=== PATIENT | male | born 1955 | race Caucasian/White ===

== ENCOUNTER 2021-07-30 12:40 | Inpatient (IN) ==
--- NOTE | 2021-07-30 13:11 | Emergency Department Note ---
History of Present Illness General Chief complaint: Cardiac Assessment Stated complaint: ''GOING TO [employer]'' CARDIAC ASSESMENT Source: patient History of Present Illness Provider complaint: Chest pain Onset (ago): month(s) Location: chest Radiation: neck (And jaw) Pain Consistency: + intermittent Quality: + burning Relieved By: + rest Exacerbated By: + other (Exertion) Associated symptoms: + diaphoresis and + shortness of breath; no cough, no fever/chills or no nausea/vomiting This is a 66-year-old male sent over from his living advisor office for admission for cardiac catheterization. The patient has been having chest pain for the past month intermittently. His try to get him to come to the emergency department but he refused each time. He describes it as a burning sensation in the middle of his chest rating into his neck and jaw. It is accompanied with diaphoresis and shortness of breath. It is worse with exertion and better with rest. He was seen by cardiology today and it was recommended that he come here for hospitalization and cardiac catheterization by Dr. Lopez. He denies any symptoms at this time. He denies any fever, recent illness, cough or cold symptoms, abdominal pain, vomiting, diarrhea, urinary symptoms or leg swelling or pain. Home Medications Medication Instructions Recorded Confirmed Type aspirin 325 mg tablet 325 mg PO DAILY 12/23/19 05/04/21 History cyclobenzaprine 10 mg tablet 10 mg PO UD tab 12/23/19 05/04/21 History fluticasone 250 mcg-salmeterol 50 1 puffs INH BID 12/23/19 05/04/21 History mcg/dose blistr powdr for inhalation fluticasone propionate 50 1 sprays INTNAS BID 12/23/19 05/04/21 History mcg/actuation nasal spray,suspension ketoconazole 2 % topical cream 1 appln TOP UD gm 12/23/19 05/04/21 History lisinopril 10 mg tablet 10 mg PO DAILY 12/23/19 05/04/21 History mupirocin calcium 2 % topical cream 1 appln TOP UD gm 12/23/19 05/04/21 History omega-3 fatty acids 1,000 mg 1,000 mg PO DAILY 12/23/19 05/04/21 History capsule (Fish Oil Concentrate) omeprazole 40 mg capsule,delayed 40 mg PO DAILY 12/23/19 05/04/21 History release rosuvastatin 20 mg sprinkle capsule 20 mg PO DAILY 12/23/19 05/04/21 History albuterol sulfate 90 mcg/actuation 1 inh INHALATION QID PRN 05/04/21 05/04/21 History aerosol inhaler sodium,potassium,mag sulfates 17.5 See Rx Instructions PO .COMPLEX 07/29/21 Rx gram-3.13 gram-1.6 gram oral soln #354 ml (Suprep Bowel Prep Kit) Allergies Allergy/AdvReac Type Severity Reaction Status Date / Time narcotic analgesics AdvReac Unknown Vomiting Uncoded 05/04/21 15:28 Past Med/Surg History Medical History (Updated 07/30/21 @ 18:51 by Justen Fernandez MD) Asthma Carpal tunnel syndrome COPD (chronic obstructive pulmonary disease) Current smoker CVA (cerebral vascular accident) Dyslipidemia GERD (gastroesophageal reflux disease) HTN (hypertension) HOA (obstructive sleep apnea) Prostate cancer Surgical History History of carpal tunnel surgery S/P prostatectomy Family History Family/Other Unknown family medical history Other Malignant melanoma Social History Smoking Status: Current every day smoker Cigarettes Per Day: 20; Hx Alcohol Use: Yes Alcohol type: beer Hx Substance Use: No Preferred Language: Serbian Communication Ability: Effective Sample Maker Original Required: No Beliefs That Will Affect Care: None marital status: Current Living Situation: Spouse current occupational status: retired Other Information That Helps Us Care for You: No Feels Safe at Home: Yes Safety Concerns: Feels Safe At This Time Assistive Devices: Glasses Review of Systems See HPI for pertinent positives & negatives. and A total of 10 systems reviewed and were otherwise negative Physical Exam Vital Signs Vital Signs - 24 hr 07/30/21 13:02 07/30/21 15:00 07/30/21 15:15 Temperature 37.2 C Temperature Source Oral Pulse Rate 102 H Pulse Rate [Apical] 103 H 84 85 Pulse Rhythm [Apical] Regular Regular Pulse Strength [Apical] Normal Normal Respiratory Rate 20 18 22 Respiratory Effort / Characteristics Non-Labored Spontaneous Non-Labored Non-Labored Respiratory Depth Normal Normal Normal Respiratory Pattern Regular Regular Regular Blood Pressure 167/102 H Blood Pressure [Right Arm] 167/102 H 118/66 116/69 Blood Pressure Mean 123 Blood Pressure Mean [Right Arm] 123 83 84 Blood Pressure Position [Right Arm] Sitting Sitting Pulse Oximetry 99 98 98 Oxygen Delivery Method Room Air Room Air Room Air Sepsis Recent Fever Within 48 Hours No Sepsis New/Unexplained Change in Mental Status No Sepsis Action Taken by Nursing No Action Required Constitutional: Vital signs reviewed. Eyes: Pupils are equal round reactive to light. Conjunctiva are noninjected. ENT: Pharynx is clear without erythema or exudate. Mucous membranes are moist. Neck supple without meningeal signs. Respiratory: Clear to auscultation bilaterally. Breath sounds are equal bilaterally. Cardiovascular: Regular rate and rhythm. No rubs or gallops. GI: Soft, nondistended and nontender. Bowel sounds are present. Musculoskeletal: No peripheral edema. No lower extremity tenderness. Integumentary: No cyanosis. or jaundice. Neurological: The patient is awake and alert. No focal deficits. Psychiatric: Normal affect. Not anxious appearing. Course Administered Medications Sodium Chloride (Nss 1000ml) 1,000 mls @ 100 mls/hr IV .Q10H [facility] Stop: 07/30/21 22:29 Last Admin: 07/30/21 16:34 Dose: 100 mls/hr Documented by: [id number] Heparin Sodium/Dextrose (Heparin Sodium/Dextrose) 25,000 units in 500 mls @ 30 mls/hr IV .[id number] [facility]; Protocol Stop: 08/29/21 15:44 Last Admin: 07/30/21 16:38 Dose: 1,500 units/hr, 30 mls/hr Documented by: [id number] Cosigned by: [id number] Nitroglycerin (Nitroglycerin 2% Ointment 30gm Tube) 1 inch EXT Q6H [facility] Stop: 08/29/21 15:29 Last Admin: 07/30/21 16:37 Dose: 1 inch Documented by: [id number] Discontinued Medications Fentanyl Citrate (Fentanyl Citrate 100 Mcg/2 Ml Vial) Confirm Administered Dose 100 mcg .ROUTE .STK-MED ONE Stop: 07/30/21 13:30 Last Admin: 07/30/21 14:35 Dose: 100 mcg Documented by: [id number] Fentanyl Citrate (Fentanyl Citrate 100 Mcg/2 Ml Vial) Confirm Administered Dose 100 mcg .ROUTE .STK-MED ONE Stop: 07/30/21 13:54 Last Increment: 07/30/21 14:36 Dose: 25 mcg Documented by: [id number] Heparin Sodium (Porcine) (Heparin (Porcine) 1000 Unit/Ml 10 Ml ([employer] Use Only)) Confirm Administered Dose 10,000 units .ROUTE .STK-MED ONE Stop: 07/30/21 13:30 Last Admin: 07/30/21 14:36 Dose: 5,000 units Documented by: [id number] Heparin Sodium/Dextrose (Heparin 69194 Unit/500 Ml D5w) Confirm Administered Dose 25,000 units IV .STK-MED ONE Stop: 07/30/21 14:42 Last Admin: 07/30/21 15:00 Dose: 1,500 units Documented by: [id number] Cosigned by: [id number] Heparin Sodium/Dextrose (Heparin Iv Adult Wt-Based Standard *No* Bolus Protocol) 1 ea IV Q15M [facility]; Protocol Stop: 07/30/21 23:59 Last Admin: 07/30/21 16:40 Dose: Not Given Documented by: [id number] Admin: 07/30/21 16:40 Dose: Not Given Documented by: [id number] Admin: 07/30/21 16:40 Dose: Not Given Documented by: [id number] Admin: 07/30/21 16:39 Dose: Not Given Documented by: [id number] Admin: 07/30/21 16:39 Dose: Not Given Documented by: [id number] Admin: 07/30/21 16:39 Dose: Not Given Documented by: [id number] Midazolam HCl (Midazolam Hcl 1 Mg/Ml 2ml Vial) Confirm Administered Dose 2 mg .ROUTE .STK-MED ONE Stop: 07/30/21 13:30 Last Admin: 07/30/21 14:36 Dose: 2 mg Documented by: [id number] Midazolam HCl (Midazolam Hcl 1 Mg/Ml 2ml Vial) Confirm Administered Dose 2 mg .ROUTE .STK-MED ONE Stop: 07/30/21 13:54 Last Increment: 07/30/21 14:37 Dose: 1 mg Documented by: [id number] Nicardipine HCl (Nicardipine Hcl Inj 2.5 Mg/Ml 10 Ml Amp) Confirm Administered Dose 25 mg .ROUTE .STK-MED ONE Stop: 07/30/21 13:30 Last Admin: 07/30/21 14:36 Dose: 25 mg Documented by: [id number] Nitroglycerin/Dextrose (Nitroglycerin/D5w 100mcg/Ml 20ml Syr) Confirm Administered Dose 2,000 mcg .ROUTE .STK-MED ONE Stop: 07/30/21 13:30 Last Admin: 07/30/21 14:36 Dose: 2,000 mcg Documented by: [id number] Medical Decision Making Differential Diagnosis DE, unstable angina, aortic dissection, pleurisy, GERD Medical Records Attestation: I reviewed the patient's medical records. I did perform a limited focused review of portions of the patient's old chart on the electronic medical record. The patient has had no recent pertinent visits to this hospital. Home Medications Current Medication List: was personally reviewed by me Laboratory Data Attestation: I reviewed the patient's lab results. Result diagrams: 07/30/21 13:00 07/30/21 13:00 Lab Results 07/30/21 07/30/21 07/30/21 Range/Units 13:00 13:00 13:00 WBC 12.83 H (4.8-10.8) K/uL RBC 5.54 (4.7-6.1) M/uL Hgb 17.0 (14.0-18.0) g/dL Hct 48.7 (42-52) % MCV 87.9 (80-100) fL MCH 30.7 (25-34) pg MCHC 34.9 (32-36) g/dL RDW Std Deviation 43.4 (36.4-46.3) fL RDW Coeff of Fifi 13.3 (11.5-14.5) % Plt Count 233 (130-400) K/uL MPV 10.4 (7.4-10.4) fL Immature Gran % (Auto) 0.2 % Neut % (Auto) 69.5 % Lymph % (Auto) 15.7 % [place] % (Auto) 10.4 % Eos % (Auto) 4.0 % Baso % (Auto) 0.2 % Neut # (Auto) 8.90 H (1.4-6.5) K/uL Lymph # (Auto) 2.02 (1.2-3.4) K/uL [place] # (Auto) 1.34 H (0.11-0.59) K/uL Eos # (Auto) 0.51 H (0-0.5) K/uL Baso # (Auto) 0.03 (0-0.2) K/uL Immature Gran # (Auto) 0.03 H (0.00-0.02) K/uL APTT 26.2 (21.0-31.0) Seconds PTT Ratio 1.0 Sodium 136 (136-145) mmol/L Potassium 4.3 (3.5-5.1) mmol/L Chloride 106 (98-107) mmol/L Carbon Dioxide 25 (21-32) mmol/L Anion Gap 5.0 (3-11) BUN 26 H (7-18) mg/dl Creatinine 1.09 (0.6-1.4) mg/dl Est Cr Clr Drug Dosing 77.6 ml/min Est GFR ( Amer) 81.5 ml/min Est GFR (Non-Af Amer) 70.4 ml/min BUN/Creatinine Ratio 23.8 H (10-20) Glucose 94 (70-99) mg/dl Calcium 9.3 (8.5-10.1) mg/dl Total Bilirubin 0.4 (0.2-1) mg/dl AST 49 H (15-37) U/L ALT 39 (12-78) U/L Alkaline Phosphatase 86 (45-117) U/L Troponin I 4.040 H* (0-0.045) ng/ml Total Protein 7.7 (6.4-8.2) gm/dl Albumin 3.8 (3.4-5.0) gm/dl Globulin 3.9 (2.5-4.0) gm/dl Albumin/Globulin Ratio 1.0 (0.9-2) Lipase 126 (73-393) U/L COVID-19 Eval Order SARS-CoV-2, RNA, NAAT (NEGATIVE) 07/30/21 07/30/21 Range/Units 13:00 13:00 WBC (4.8-10.8) K/uL RBC (4.7-6.1) M/uL Hgb (14.0-18.0) g/dL Hct (42-52) % MCV (80-100) fL MCH (25-34) pg MCHC (32-36) g/dL RDW Std Deviation (36.4-46.3) fL RDW Coeff of Fifi (11.5-14.5) % Plt Count (130-400) K/uL MPV (7.4-10.4) fL Immature Gran % (Auto) % Neut % (Auto) % Lymph % (Auto) % [place] % (Auto) % Eos % (Auto) % Baso % (Auto) % Neut # (Auto) (1.4-6.5) K/uL Lymph # (Auto) (1.2-3.4) K/uL [place] # (Auto) (0.11-0.59) K/uL Eos # (Auto) (0-0.5) K/uL Baso # (Auto) (0-0.2) K/uL Immature Gran # (Auto) (0.00-0.02) K/uL APTT (21.0-31.0) Seconds PTT Ratio Sodium (136-145) mmol/L Potassium (3.5-5.1) mmol/L Chloride (98-107) mmol/L Carbon Dioxide (21-32) mmol/L Anion Gap (3-11) BUN (7-18) mg/dl Creatinine (0.6-1.4) mg/dl Est Cr Clr Drug Dosing ml/min Est GFR ( Amer) ml/min Est GFR (Non-Af Amer) ml/min BUN/Creatinine Ratio (10-20) Glucose (70-99) mg/dl Calcium (8.5-10.1) mg/dl Total Bilirubin (0.2-1) mg/dl AST (15-37) U/L ALT (12-78) U/L Alkaline Phosphatase (45-117) U/L Troponin I (0-0.045) ng/ml Total Protein (6.4-8.2) gm/dl Albumin (3.4-5.0) gm/dl Globulin (2.5-4.0) gm/dl Albumin/Globulin Ratio (0.9-2) Lipase (73-393) U/L COVID[facility], RNA, NAAT NEGATIVE (NEGATIVE) Imaging Data Radiologist's Impression: Chest X-Ray 07/30/21 12:54 XR chest 1V portable HISTORY: 66 years-old Male Chest Pain acute atypical chest pain COMPARISON: CT chest 12/16/2020 TECHNIQUE: Portable AP view of the chest FINDINGS: Cardiac silhouette is normal in size. Emphysema with mild chronic interstitial coarsening. No pneumothorax, pleural effusion or overt pulmonary edema. Mild bibasilar densities suggestive of atelectasis. Degenerative changes of the shoulders and spine. IMPRESSION: Emphysema without acute process. ACT 112: Negative or not required by law. The above report was generated using voice recognition software. It may contain grammatical, syntax or spelling errors. Electronically signed by: Bryan Baldwin M.D. 07/30/2021 1:22 PM ECG Data Attestation: I personally reviewed and interpreted this ECG as follows: Indication: + chest pain Rate (beats per minute): 97 Rhythm: + normal sinus ECG [place]: + Normal ECG ST segments: + T-wave inversions and + Nonspecific ST abnormalities ECG Findings: no PVCs MDM Narrative I did evaluate the patient as noted above. He is presenting with a month of exertional chest pain. He was seen by cardiology and sent here for admission and cardiac catheterization. IV access was established. I did place an order for continuous cardiac monitoring. The monitor showed normal sinus rhythm at a rate of 98 bpm. I did order and personally review the patient's 12-lead EKG as described above. He has some T wave inversions and nonspecific ST changes. No evidence of STEMI. I did order and personally reviewed the images of the patient's chest x-ray as described above. He has emphysematous changes without acute process. I did order a urine analysis. I did order and review the patient's blood work as noted in the electronic medical record. CBC demonstrates a white count of 12.8. He is not anemic. Electrolytes are unremarkable. Troponin is elevated at 4.04. I did discuss case with the hospitalist and clinical case manager. The patient was seen by cardiology in the emergency department and taken directly to the cardiac catheterization lab. Impression & Plan Non-ST elevation DE (NSTEMI) Discharge Plan Visit Data Chief Complaint: Cardiac Assessment Stated Complaint: ''GOING TO [employer]'' CARDIAC ASSESMENT ED Provider: Justen Fernandez Discharge Problem: Non-ST elevation DE (NSTEMI) Patient Disposition: Admitted As Inpatient Discharge Instructions Interventions: ED Discharge Assessment Last Done: 07/30/21 13:20
[2021-07-30 13:16] LABS: Basophils # (auto) 0.03 K/uL (0-0.2); Basophils % (auto) 0.2 %; Eosinophils # (auto) 0.51 K/uL (0-0.5); Hematocrit (blood only) 48.7 % (42-52); Immature Granulocytes # (auto) 0.03 K/uL (0.00-0.02); Immature Granulocytes % (auto) 0.2 %; Lymphocytes # (auto) 2.02 K/uL (1.2-3.4); Lymphocytes % (auto) 15.7 %; Mean Corpuscular Hemoglobin 30.7 pg (25-34); Mean Corpuscular Hgb Conc 34.9 g/dL (32-36); Mean Corpuscular Volume 87.9 fL (80-100); Mean Platelet Volume 10.4 fL (7.4-10.4); Monocytes # (auto) 1.34 K/uL (0.11-0.59); Monocytes % (auto) 10.4 %; Neutrophils % (auto) 69.5 %; Platelet Count 233 K/uL (130-400); RDW Coefficient of Variation 13.3 % (11.5-14.5); RDW Standard Deviation 43.4 fL (36.4-46.3); Red Blood Count 5.54 M/uL (4.7-6.1); White Blood Count 12.83 K/uL (4.8-10.8)
[2021-07-30 13:21] LABS: Partial Thromboplastin Time 26.2 Seconds (21.0-31.0)
--- NOTE | 2021-07-30 13:23 | XRay Report ---
XR chest 1V portable HISTORY: 66 years-old Male Chest Pain acute atypical chest pain COMPARISON: CT chest 12/16/2020 TECHNIQUE: Portable AP view of the chest FINDINGS: Cardiac silhouette is normal in size. Emphysema with mild chronic interstitial coarsening. No pneumot horax, pleural effusion or overt pulmonary edema. Mild bibasilar densities suggestive of atelectasis. Degenerative changes of the shoulders and spine. IMPRESSION: Emphysema without acute process. ACT 112: Negative or not required by law. The above report was generated using voice recognition software. It may contain grammatical, syntax o r spelling errors. Electronically signed by: Bryan Baldwin M.D. 07/30/2021 1:22 PM
[2021-07-30] MEDS ORDERED: niCARdipine HCL INJ 2.5 MG/ML 10 ML AMP ONE (13:29)
[2021-07-30] MEDS ORDERED: HEPARIN (PORCINE) 1000 UNIT/ML 10 ML (CATH LAB USE ONLY) ONE (13:29)
[2021-07-30] MEDS ORDERED: fentaNYL citrate 100 MCG/2 ML VIAL ONE ×2 (13:29→13:53)
[2021-07-30] MEDS ORDERED: MIDAZOLAM HCL 1 MG/ML 2ML VIAL ONE ×2 (13:29→13:53)
[2021-07-30] MEDS ORDERED: NITROGLYCERIN/D5W 100MCG/ML 20ML SYR ONE (13:29)
--- NOTE | 2021-07-30 13:29 | Pre Anesthesia Assessment ---
Date of Service July 30, 2021 Pre Sedation Assessment Vital Signs Temp Pulse Pulse Resp BP BP Pulse Ox 07/30/21 13:02 99.0 F 102 H 103 H 20 167/102 H 167/102 H 99 Cardiovascular RRR, no murmur, no edema Respiratory normal respiratory effort, lungs clear to auscultation Pre-Sedation Airway Assessment Smoking Status: Current every day smoker Hx Sleep Apnea: No Hx Difficult Intubation: No Short, Thick Neck: No Thyromental Distance: < 3.5 Finger Breadths Mallampati Class: III ASA: ASA3 Procedure Planning Contraindications for Sedation: none Current Medications Reviewed: Yes Notes The planned sedation has been discussed with the patient. Informed Consent was obtained. I have identified the patient, determined the appropriateness of sedation and have assessed the patient immediately prior to the procedure. All medicine(s) and interventions are by my order.
[2021-07-30 13:30] LABS: Albumin Level 3.8 gm/dl (3.4-5.0); BUN Creatinine Ratio 23.8 (10-20); Calcium 9.3 mg/dl (8.5-10.1); Creatinine Clr Calc Pharmacy 77.6 ml/min; Est GFR (African American) 81.5 ml/min; Est GFR (Non-African American) 70.4 ml/min; Potassium 4.3 mmol/L (3.5-5.1)
--- NOTE | 2021-07-30 13:35 | Cardiology Consultation ---
Date of Consultation July 30, 2021 Assessment & Plan (1) Unstable angina: Presentation concerning for unstable angina and recommend proceeding with urgent cardiac catheterization and possible PCI. No apparent contraindications to procedure. Discussed risks, benefits, alternatives of procedure with patient and they are willing to proceed. Further recommendations pending findings of coronary angiography. History of Present Illness History of Present Illness Mr. Aguillon is a 66 yo man with COPD, heavy tobacco use, HOA, prior TIA here with accelerating/unstable angina. Symptoms for 1 month. Substernal burning chest pain, diaphoresis with exertion. Progressed to point where having them symptoms minimal activity like talking. Chest pain free currently. Initial ECG unremarkable. Allergies Allergy/AdvReac Type Severity Reaction Status Date / Time narcotic analgesics AdvReac Unknown Vomiting Uncoded 05/04/21 15:28 Home Medications Medication Instructions Recorded Confirmed Type aspirin 325 mg tablet 325 mg PO DAILY 12/23/19 05/04/21 History cyclobenzaprine 10 mg tablet 10 mg PO UD tab 12/23/19 05/04/21 History fluticasone 250 mcg-salmeterol 50 1 puffs INH BID 12/23/19 05/04/21 History mcg/dose blistr powdr for inhalation fluticasone propionate 50 1 sprays INTNAS BID 12/23/19 05/04/21 History mcg/actuation nasal spray,suspension ketoconazole 2 % topical cream 1 appln TOP UD gm 12/23/19 05/04/21 History lisinopril 10 mg tablet 10 mg PO DAILY 12/23/19 05/04/21 History mupirocin calcium 2 % topical cream 1 appln TOP UD gm 12/23/19 05/04/21 History omega-3 fatty acids 1,000 mg 1,000 mg PO DAILY 12/23/19 05/04/21 History capsule (Fish Oil Concentrate) omeprazole 40 mg capsule,delayed 40 mg PO DAILY 12/23/19 05/04/21 History release rosuvastatin 20 mg sprinkle capsule 20 mg PO DAILY 12/23/19 05/04/21 History albuterol sulfate 90 mcg/actuation 1 inh INHALATION QID PRN 05/04/21 05/04/21 History aerosol inhaler sodium,potassium,mag sulfates 17.5 See Rx Instructions PO .COMPLEX 07/29/21 Rx gram-3.13 gram-1.6 gram oral soln #354 ml (Suprep Bowel Prep Kit) Patient History Medical History (Updated 07/30/21 @ 13:33 by Pillo Lopez MD) Asthma Carpal tunnel syndrome COPD (chronic obstructive pulmonary disease) Current smoker CVA (cerebral vascular accident) Dyslipidemia GERD (gastroesophageal reflux disease) HTN (hypertension) HOA (obstructive sleep apnea) Prostate cancer Surgical History History of carpal tunnel surgery S/P prostatectomy Family History Family/Other Unknown family medical history Other Malignant melanoma Social History Smoking Status: Current every day smoker Cigarettes Per Day: 20; Hx Alcohol Use: Yes Hx Substance Use: Yes marital status: Current Living Situation: Spouse current occupational status: retired Feels Safe at Home: Yes Review of Systems Review of Systems: All systems reviewed & are unremarkable except as noted in HPI & below Physical Exam Physical Exam: General: Comfortable HEENT: Sclerae anicteric, Mask in place Lungs: Clear to auscultation bilaterally, Cardiac: Regular rate and rhythm, no murmurs. Vascular: 2+ radial, DP pulses. Abdomen: Soft, nontender Extremities: Well perfused, no peripheral edema Neuro: Nonfocal Psych: Alert orient x3, normal affect and mood Results & Data ([facility]) Vital Signs (Past 12 Hours) Vital Signs Temp Pulse Pulse Resp BP BP Pulse Ox 07/30/21 13:02 99.0 F 102 H 103 H 20 167/102 H 167/102 H 99 PG Care Time/CCT Total # of Minutes Spent Total Time Spent with Patient: Total time spent is greater than 50% in coordination of care (as documented) at patient's floor/unit and/or counseling patient: Coding Level of Care Code 21086 Initial Inpt Care Lvl 3 Diagnoses Unstable angina I20.0
[2021-07-30 13:41] LABS: Bilirubin,Total 0.4 mg/dl (0.2-1); Globulin 3.9 gm/dl (2.5-4.0); Total Protein 7.7 gm/dl (6.4-8.2); Troponin I 4.04 ng/ml (0-0.045)
--- NOTE | 2021-07-30 14:40 | Post Anesthesia Assessment ---
Date of Service July 30, 2021 Post Sedation Assessment Vital Signs Temp Pulse Pulse Resp BP BP Pulse Ox 07/30/21 13:02 99.0 F 102 H 103 H 20 167/102 H 167/102 H 99 Recovery Score Activity: Moves 4 extremities Respiration: Deep Breath/Cough Circulation: +/-20% PreAnes Value Consciousness: Fully Awake Oxygen Saturation: O2 needed for >90% Discharge Sedation Level of Care: Fast Track Phase II Post Sedation Plan On clinical assessment, the patient appears to have tolerated the sedation without complications. Patient is recovering as anticipated. Patient will continue to be monitored by nursing and may be discharged when sedation discharge criteria are met per below protocol. Upon Completions of procedure up to 15 minutes continue every 5 minute vital signs and the P.A.R. score; then discharge to a Phase I or Fast Track to Phase II per the following guidelines: * Discharge Patient to appropriate Phase II area if PAR is 8 or greater or return to pre- procedure baseline. The post - procedure orders will be as directed. * If PAR score is less than 8 or not return to pre-procedure baseline then patient will follow Phase I monitoring till PAR is reached for Phase II. The Phase I may be done in procedure room or may call to secure a Phase I area. * If naloxone or flumazenil are used for reversal, hold in Phase I for continued monitoring from when last reversal dose was given for a minimum of 60 minutes or longer pending the nurse and/or physician discretion of patient condition before discharge to Phase II. Please call the Sedation Physician to re-evaluate and complete post-note for discharge to Phase II area. Do NOT discharge from procedure sedation or Phase 1 until post- sedation evaluation note is complete by procedure /sedation MD Sedation Discharge Instructions to be given to the patient at discharge to home.
[2021-07-30] MEDS ORDERED: HEPARIN 25000 UNIT/500 ML D5W IV ONE (14:41)
--- NOTE | 2021-07-30 14:41 | Cardiac Catheterization ---
[facility] Data: Embedded Systems Software Engineer Cardiac Status Clinical evaluation leading to the procedure CAD Presenation: Non STEMI Anginal Classification: CCS IV Heart Failure: No Cardiogenic Shock within 24 Hours: No Cardiac Arrest within 24 Hours: No Imaging Studies Past 6 Months: No Stress Studies Past 6 Months: No Diagnostic Physicians Name: Enrique Lopez MD Status: Urgent Closure Device Percutaneous Entry Location: Radial Closure Device: Radial Band Recommendations: CABG Intraprocedure Events Significant Disection: No Perforation: No Cardiac Cath Procedure Full Procedure Date July 30, 2021 Pre-Procedure Diagnosis Pre-Procedure Diagnosis: Non STEMI AUC Score AUC Score: 8 Post-Procedure Diagnosis Post-Procedure Diagnosis: Severe CAD and Normal Intracardiac Pressures Procedure(s) Performed Procedure(s) Performed: Coronary Angiography and Left Heart Cath Steel Sash Erector Enrique Lopez MD Print Developer(s) Batch Analyst Estimated Blood Loss Estimated Blood Loss: 10 Medication(s) Medication(s): Fentanyl, Heparin, Lidocaine 1%, Nicardipine, Nitroglycerin and Versed Summary of Findings Indication: Acute coronary syndrome Access: 6 Fr right, left radial artery. Had to switch to left radial artery due to right subclavian artery tortuosity. Catheters: [place], diagnostic JL 3.5 Findings: LM -medium caliber, 40% ostial stenosis LAD -medium caliber, 70% proximal stenosis, 100% mid occlusion after D1. Mid to distal LAD fills via left to left collaterals. Medium D1 without significant disease Circumflex -small, diffuse proximal disease, 100% mid occlusion. Small OM 3/left PLB fills via left to left collaterals. RCA -dominant, large caliber, mild diffuse mid disease before 98% acute latemid stenosis. VINNIE-3 flow in right PDA, large right PLB LVEDP -9 Arterial Closure: TR bands Summary: 1. Severe multivessel coronary artery disease -98% acute mid RCA stenosis 40% ostial left main 70% proximal LAD prior to medium D1 100% mid LAD occlusion, distal vessel fills via left to left collaterals 100% small mid circumflex, distal vessel fills via left to left collaterals. 2. Normal intracardiac filling pressure Recommendations: Chest pain-free with VINNIE-3 flow in RCA. No need for emergent intervention. Recommend transfer to tertiary center for CABG evaluation. Discussed with Dr. Martinez of [facility] cardiac surgery. While awaiting transfer continue heparin infusion, nitro, aspirin, beta-xochitl. Hemodynamics Rest Ao:: 100/70/84 Final Ao: 101/69/83 LV: 113/9 Recommendations Recommendations: CABG Specimens Specimens: None Radiation Exposure (mGy) 1757 Contrast (mls) 55 Fluids (cc crystalloids) Fluids (cc crystalloids): 97 Drains Drains: None Anesthesia Moderate 0366-5732 Procedural Complication(s) None Disposition PCU I attest to the content of the Intraoperative Record and any orders documented therein. Any exceptions are noted below. [facility] Card Cath Procedure Codes Cardiac Catheterization Procedure 1: Cardiovascular Cath Procedures: 73417 Coronaries and LHC (+/-LV) Moderate Sedation Procedure 1: Sedation/Anesthesia: 60873 Mod Sedation by the same physician;Init15 Min Child Age 5 & Up Procedure 2: Sedation/Anesthesia: 10432 Mod Sedation by the same physician; Ea [id number] Minutes PG Care Time/CCT Total # of Minutes Spent Total Time Spent with Patient: Total time spent is greater than 50% in coordination of care (as documented) at patient's floor/unit and/or counseling patient:
[2021-07-30] MEDS ORDERED: ACETAMINOPHEN 325 MG TAB PO PRN (15:00)
[2021-07-30] MEDS ORDERED: SODIUM CHLORIDE 0.9% 1000ML 1,000 ML IV SCH (15:00)
[2021-07-30] MEDS ORDERED: MoRPHine SULFATE 10 MG/ML CARP/VIAL IV PRN (15:00)
[2021-07-30] MEDS ORDERED: ONDANSETRON INJ 2 MG/ML 2 ML VIAL IV PRN (15:00)
[2021-07-30] MEDS ORDERED: HEPARIN SODIUM/DEXTROSE 25,000 UNITS/500 ML BAG IV SCH (15:45)
[2021-07-30] MEDS: NITROGLYCERIN 2% OINTMENT 30GM TUBE EXT SCH ×2 (16:37→21:07)
[2021-07-30] MEDS: Heparin IV Adult Wt-Based Standard *NO* Bolus Protocol IV SCH ×2 (16:39→16:40)
--- NOTE | 2021-07-30 17:36 | History & Physical Report ---
Date of Service July 30, 2021 Assessment & Plan (1) Unstable angina: Plan: presented with one month of chest pain, burning left heart cath today with 99% stenosis in RCA with 100% occlusion circumflex and 100% occlusion LAD, the two latter sites are chronic with large collateral flow culprit vessel is RCA Dr. Lopez called [facility], they will accept him, no bed at this time continue heparin drip, nitro paste, aspirin, Metoprolol BID, Crestor 40mg on NSS after left heart cath labs in the morning (2) Coronary artery disease: Plan: severe 3 vessel disease that needs CABG LAD and circumflex are chronic with collateral flow RCA with 99% stenosis, VINNIE 3 flow if he would decompensate call Dr. Lopez, he can stent the RCA awaiting bed at [facility] Admission and Anticipated Discharge Date Admission Date: July 30, 2021 History of Present Illness Chief Complaint: I've had chest pain, on and off Primary Care Provider: Antonieta Patel MD 66 yo male with recent h/o chest burning sensation, radiates up into his neck and then he has a headache. He says he gets the symptoms on exertion. He says that the symptoms will last about 10 minutes, start to go away as he is resting. He does not feel short of breath or diaphoretic. He was getting concerned as the symptoms were more frequent, could not exert himself much, even walking up a flight of steps would trigger the chest burning. Did not have these symptoms prior to a month ago, if he did they were sporadic and not as intense. He was admitted for unstable angina, Dr. Lopez took him to the laboratory monitor straight from the ED. He was found to have severe triple vessel disease, chronic 100% occlusions in LAD and circumflex with good collateral flow but a new 99% stenosis in RCA. VINNIE flow was 3, no stent was placed. Dr. Lopez called [facility] and the cardiothoracic surgeon accepted him. No beds immediately so he was admitted to PCU. Plan for heparin drip, nitro paste, metoprolol, Crestor, aspirin. I discussed the case and the plan with Dr. Lopez. If the patient would decompensate over night then he would stent the RCA as that is likely the culprit vessel. Allergies Allergy/AdvReac Type Severity Reaction Status Date / Time narcotic analgesics AdvReac Unknown Vomiting Uncoded 05/04/21 15:28 Home Medications Medication Instructions Recorded Confirmed Type aspirin 325 mg tablet 325 mg PO DAILY 12/23/19 05/04/21 History cyclobenzaprine 10 mg tablet 10 mg PO UD tab 12/23/19 05/04/21 History fluticasone 250 mcg-salmeterol 50 1 puffs INH BID 12/23/19 05/04/21 History mcg/dose blistr powdr for inhalation fluticasone propionate 50 1 sprays INTNAS BID 12/23/19 05/04/21 History mcg/actuation nasal spray,suspension ketoconazole 2 % topical cream 1 appln TOP UD gm 12/23/19 05/04/21 History lisinopril 10 mg tablet 10 mg PO DAILY 12/23/19 05/04/21 History mupirocin calcium 2 % topical cream 1 appln TOP UD gm 12/23/19 05/04/21 History omega-3 fatty acids 1,000 mg 1,000 mg PO DAILY 12/23/19 05/04/21 History capsule (Fish Oil Concentrate) omeprazole 40 mg capsule,delayed 40 mg PO DAILY 12/23/19 05/04/21 History release rosuvastatin 20 mg sprinkle capsule 20 mg PO DAILY 12/23/19 05/04/21 History albuterol sulfate 90 mcg/actuation 1 inh INHALATION QID PRN 05/04/21 05/04/21 History aerosol inhaler sodium,potassium,mag sulfates 17.5 See Rx Instructions PO .COMPLEX 07/29/21 Rx gram-3.13 gram-1.6 gram oral soln #354 ml (Suprep Bowel Prep Kit) Past Med/Surg History Medical History Asthma Carpal tunnel syndrome COPD (chronic obstructive pulmonary disease) Current smoker CVA (cerebral vascular accident) Dyslipidemia GERD (gastroesophageal reflux disease) HTN (hypertension) HOA (obstructive sleep apnea) Prostate cancer Surgical History History of carpal tunnel surgery S/P prostatectomy Family History Family/Other Unknown family medical history Other Malignant melanoma Social History Smoking Status: Current every day smoker Cigarettes Per Day: 20; Hx Alcohol Use: Yes Alcohol type: beer Hx Substance Use: No Preferred Language: Australian Communication Ability: Effective Network Operations Specialist Required: No Beliefs That Will Affect Care: None marital status: Current Living Situation: Spouse current occupational status: retired Other Information That Helps Us Care for You: No Feels Safe at Home: Yes Safety Concerns: Feels Safe At This Time Assistive Devices: Glasses Review of Systems Review of Systems: All systems reviewed & are unremarkable except as noted in HPI & below Physical Exam Physical Exam: General: well developed, obese male, no acute distress, comfortable Neck: supple, trachea midline, normal thyroid Lungs: clear to auscultation bilaterally, normal respiratory effort, no accessory muscle use, no distress Heart: regular S1 and S2, no murmur, peripheral pulses normal, capillary refill normal, no edema Abdomen: soft, NT, ND, + BS, no hepatomegaly, normal to percussion Extremities: normal in appearance, no cyanosis, no petechiae, strength is 5/5 bilaterally Neuro: awake, cooperative, moves all extremities, no focal motor deficits, CN II -XII intact, sensation in extremities intact, normal speech Skin: warm, dry, no rash, normal turgor Psych: Awake, alert oriented x 3, euthymic affect Results & Data Results & Data ([facility]) Vital Signs (Past 12 Hours) Vital Signs Temp Pulse Pulse Resp BP BP BP 07/30/21 17:10 97 H 18 144/82 H 07/30/21 16:55 100 H 18 148/85 H 07/30/21 16:46 88 17 130/67 07/30/21 16:40 36.6 C 87 18 130/77 07/30/21 16:24 36.6 C 89 20 135/86 07/30/21 15:45 88 18 116/87 07/30/21 15:30 89 20 133/80 07/30/21 15:15 85 22 116/69 07/30/21 15:00 84 18 118/66 07/30/21 13:02 37.2 C 102 H 103 H 20 167/102 H 167/102 H Pulse Ox 07/30/21 17:10 95 07/30/21 16:55 94 07/30/21 16:46 96 07/30/21 16:40 98 07/30/21 16:24 96 07/30/21 15:45 96 07/30/21 15:30 96 07/30/21 15:15 98 07/30/21 15:00 98 07/30/21 13:02 99 Laboratory Results Laboratory Results - last 24 hr 07/30/21 07/30/21 07/30/21 13:00 13:00 13:00 WBC 12.83 H RBC 5.54 Hgb 17.0 Hct 48.7 MCV 87.9 MCH 30.7 MCHC 34.9 RDW Std Deviation 43.4 RDW Coeff of Fifi 13.3 Plt Count 233 MPV 10.4 Immature Gran % (Auto) 0.2 Neut % (Auto) 69.5 Lymph % (Auto) 15.7 Harney % (Auto) 10.4 Eos % (Auto) 4.0 Baso % (Auto) 0.2 Neut # (Auto) 8.90 H Lymph # (Auto) 2.02 Harney # (Auto) 1.34 H Eos # (Auto) 0.51 H Baso # (Auto) 0.03 Immature Gran # (Auto) 0.03 H APTT 26.2 PTT Ratio 1.0 Sodium 136 Potassium 4.3 Chloride 106 Carbon Dioxide 25 Anion Gap 5.0 BUN 26 H Creatinine 1.09 Est Cr Clr Drug Dosing 77.6 Est GFR ( Amer) 81.5 Est GFR (Non-Af Amer) 70.4 BUN/Creatinine Ratio 23.8 H Glucose 94 Calcium 9.3 Total Bilirubin 0.4 AST 49 H ALT 39 Alkaline Phosphatase 86 Troponin I 4.040 H* Total Protein 7.7 Albumin 3.8 Globulin 3.9 Albumin/Globulin Ratio 1.0 Lipase 126 COVID-19 Eval Order SARS-CoV-2, RNA, NAAT 07/30/21 07/30/21 13:00 13:00 WBC RBC Hgb Hct MCV MCH MCHC RDW Std Deviation RDW Coeff of Fifi Plt Count MPV Immature Gran % (Auto) Neut % (Auto) Lymph % (Auto) Harney % (Auto) Eos % (Auto) Baso % (Auto) Neut # (Auto) Lymph # (Auto) Harney # (Auto) Eos # (Auto) Baso # (Auto) Immature Gran # (Auto) APTT PTT Ratio Sodium Potassium Chloride Carbon Dioxide Anion Gap BUN Creatinine Est Cr Clr Drug Dosing Est GFR ( Amer) Est GFR (Non-Af Amer) BUN/Creatinine Ratio Glucose Calcium Total Bilirubin AST ALT Alkaline Phosphatase Troponin I Total Protein Albumin Globulin Albumin/Globulin Ratio Lipase COVID-19 Eval [facility] SARS-CoV-2, RNA, NAAT NEGATIVE Code Status & VTE Plan VTE Prophylaxis Plan VTE Prophylaxis will be ordered: Yes PG Care Time/CCT Total # of Minutes Spent Total Time Spent with Patient: Total time spent is greater than 50% in coordination of care (as documented) at patient's floor/unit and/or counseling patient: Coding Level of Care Code 37974 Initial Inpt Care Lvl 2 Diagnoses Unstable angina I20.0 Coronary artery disease I25.10
[2021-07-30] MEDS ORDERED: METOPROLOL TARTRATE 25 MG TAB PO SCH (21:00)
[2021-07-30] MEDS ORDERED: NICOTINE 14 MG/24 HR PATCH TD SCH (22:00)
[2021-07-30 22:13] LABS: Partial Thromboplastin Ratio 2.8
[2021-07-30 22:20] LABS: Partial Thromboplastin Time 74.9 Seconds (21.0-31.0)
[2021-07-30] MEDS: LORazepam 0.5 MG TAB PO PRN (22:34)
[2021-07-30] MEDS ORDERED: MoRPHine SULFATE 2 MG/ML CARP ONE (23:59)
[2021-07-31] MEDS: LORazepam 0.5 MG TAB PO PRN (02:25)
--- NOTE | 2021-07-31 06:44 | Electrocardiogram Report ---
Test Reason : Blood Pressure : / mmHG Vent. Rate : 097 BPM Atrial Rate : 097 BPM P-R Int : 134 ms QRS Dur : 098 ms QT Int : 336 ms P-R-T Axes : 063 -07 -01 degrees QTc Int : 426 ms Normal sinus rhythm Nonspecific ST abnormality Abnormal ECG No previous ECGs available Confirmed by Nehemias Palacio ([id number]) on 07/31/2021 6:44:01 AM Referred By: Justice Puentes Confirmed By:Nehemias Palacio
[2021-07-31] MEDS ORDERED: ROSUVASTATIN CALCIUM 20 MG TAB PO SCH (09:00)
[2021-07-31] MEDS ORDERED: ASPIRIN 81 MG ECTAB PO SCH (09:00)
[2021-07-31] MEDS ORDERED: PANTOprazole 40 MG TAB PO SCH (09:00)
--- NOTE | 2021-08-02 15:03 | Discharge Summary ---
Date of Service July 31, 2021 Admission HPI Per Admitting Provider 66 yo male with recent h/o chest burning sensation, radiates up into his neck and then he has a headache. He says he gets the symptoms on exertion. He says that the symptoms will last about 10 minutes, start to go away as he is resting. He does not feel short of breath or diaphoretic. He was getting concerned as the symptoms were more frequent, could not exert himself much, even walking up a flight of steps would trigger the chest burning. Did not have these symptoms prior to a month ago, if he did they were sporadic and not as intense. He was admitted for unstable angina, Dr. Lopez took him to the laborer prestressed concrete straight from the ED. He was found to have severe triple vessel disease, chronic 100% occlusions in LAD and circumflex with good collateral flow but a new 99% stenosis in RCA. VINNIE flow was 3, no stent was placed. Dr. Lopez called [place] and the cardiothoracic surgeon accepted him. No beds immediately so he was admitted to PCU. Plan for heparin drip, nitro paste, metoprolol, Crestor, aspirin. I discussed the case and the plan with Dr. Lopez. If the patient would decompensate over night then he would stent the RCA as that is likely the culprit vessel. Principal Diagnosis NSTEMI Severe multivessel coronary artery disease Discharge Data Allergies Allergy/AdvReac Type Severity Reaction Status Date / Time narcotic analgesics AdvReac Unknown Vomiting Uncoded 05/04/21 15:28 Consultations 07/30/21 13:32 ED Decision to Admit Stat Procedures Performed Operation Date: 07/30/21 14:00 Actual Procedures p Cath, Left with Cors and Vent - Pillo Lopez MD s Cineradiography w/Routine Exam - Pillo Lopez MD Ordered Studies 07/30/21 13:14 CL Cath Imgs for PACS use only Stat Hospital Course (1) Non-ST elevation PR (NSTEMI): Antonino Aguillon is a 66 year old male admitted to [facility] on July 302020 due to chest pain. Troponin 4.04. EKG unremarkable. He was admitted for NSTEMI, Dr. Lopez took him to the laborer prestressed concrete straight from the ED. He was found to have severe triple vessel disease, chronic 100% occlusions in LAD and circumflex with good collateral flow but a new 99% stenosis in RCA. VINNIE flow was 3, no stent was placed. Dr. Lopez called [place] and the cardiothoracic surgeon accepted him. No beds immediately so he was admitted to PCU. Plan for heparin drip, nitro paste, metoprolol, Crestor, aspirin. Trans port was arranged to [facility] for further care. He was not seen on day of discharge as he was transported overnight. Total Time Total Time Spent Total Time Spent (In Minutes): 35 Discharge Plan Discharge Items Patient Disposition: Transfer Acute Care Hospital Reason For Visit: NSTEMI Discharge Diagnosis: NSTEMI Severe multivessel coronary artery disease Activity: Per Instructions section Non-emergency contact: Long Term Care Social Worker Call non-emergency contact if: you have any medication questions and your symptoms worsen Follow-up/Referrals: Pillo Lopez MD [Physician] - Antonieta Patel MD [Primary Care Provider] - Diet: Heart Healthy Addtl Attending Provider Instructions: Antonino Aguillon is a 66 year old male admitted to [facility] on July 30, 2021 due to chest pain. Troponin 4.04. EKG unremarkable. He was admitted for STEMI, Dr. Lopez took him to the laborer prestressed concrete straight from the ED. He was found to have severe triple vessel disease, chronic 100% occlusions in LAD and circumflex with good collateral flow but a new 99% stenosis in RCA. VINNIE flow was 3, no stent was placed. Dr. Lopez called [facility] and the cardiothoracic surgeon accepted him. No beds immediately so he was admitted to PCU. Plan for heparin drip, nitro paste, metoprolol, Crestor, aspirin. Nb; Med list below is his home medications list. Please see separate inpatient medication list. Pending Studies at Discharge: No Stand-Alone Forms: My [facility] Skilled Items Patient informed of condition?: Yes DNR: No Discharge Level of Care: Other Communicable Disease: No Discharge Prognosis: Stable Lines: Peripheral IV Urinary Catheter: No Medications and DC Order Prescriptions: Continued Suprep Bowel Prep Kit 17.5-3.13-1.6 gram recon soln See Rx Instructions PO .COMPLEX Qty: 354 RF: 0 albuterol sulfate 90 mcg/actuation HFA aerosol inhaler 1 inh inhalation QID PRN (Reason: shortness of breath or wheezing) RF: 0 aspirin 325 mg tablet 325 mg PO DAILY RF: 0 cyclobenzaprine 10 mg tablet 10 mg PO UD RF: 0 omega-3 fatty acids [Fish Oil Concentrate] 1,000 mg capsule 1,000 mg PO DAILY RF: 0 fluticasone propionate 50 mcg/actuation spray,suspension 1 sprays INTNAS BID RF: 0 fluticasone propion-salmeterol 250-50 mcg/dose blister with device 1 puffs INH BID RF: 0 ketoconazole 2 % cream 1 appln TOP UD RF: 0 lisinopril 10 mg tablet 10 mg PO DAILY RF: 0 mupirocin calcium 2 % cream 1 appln TOP UD RF: 0 omeprazole 40 mg capsule,delayed release(DR/EC) 40 mg PO DAILY RF: 0 rosuvastatin 20 mg capsule, sprinkle 20 mg PO DAILY RF: 0 Discharge Orders: Discharge Order (Routine); Ordered 07/30/21 Ordered By: Herrera Bello Admission Data Admit Date/Time: 07/30/21 15:16 Attending Provider: Herrera Bello Admit Provider: Pillo Lopez Primary Care Provider: Antonieta Patel Other Providers: Herrera Bello Other Interventions: Discharge Summary Assessment (RN) Last Done: 07/31/21 00:27 Coding Level of Care Code None Diagnoses Non-ST elevation PR (NSTEMI) I21.4 Comment patient was not seen on day of discharge. Seen by prior provider on Jul 30
== END 2021-07-31 02:40 | disposition short-term general hospital (02) | DRG 282 ==
LOC: ED 12:40 → CC 13:23 → 2S 13:23